=== PATIENT | female | born 1990 | race Caucasian/White ===

== ENCOUNTER 2018-07-03 07:59 | Emergency (ER) | payer MEDICAID ==
[~2018-07-03] VITALS: Ht 160 cm; Wt 108.9 kg
[2018-07-03 08:05] VITALS: BP 129/86
--- NOTE | 2018-07-03 08:20 | NUR ---
PT C/O EPIGASTRIC PAIN THAT STARTED THIS MORNING. PT REPORTS NAUSEA; DENIES VOMITING, DIARRHEA. PAIN DESCRIBED ACHING AND CONSTANT, 7/10. NO OTHER COMPLAINTS; VSS. PATIENT POSITIONED FOR COMFORT; HOB ELEVATED; BEDRAILS UP X1; BED DOWN. ER MD MADE AWARE OF PT STATUS.
[2018-07-03] MEDS ORDERED: DICYCLOMINE HCL LIQUID 20 MG, ALUMINUM HYD/MAG/SIMETHICONE 30 ML, LIDOCAINE VISCOUS 2% ... PO ONE ×3 (08:30)
[2018-07-03] MEDS ORDERED: ONDANSETRON 4 MG ODT PO ONE (08:30)
[2018-07-03 09:32] VITALS: BP 129/86
--- NOTE | 2018-07-03 09:33 | NUR ---
Patient discharged with v/s stable. Written and verbal after care instructions given and explained. Patient alert, oriented and verbalized understanding of instructions. Ambulatory with steady gait. All questions addressed prior to discharge. ID band removed. Patient advised to follow up with PMD. Rx of MOTRIN, NORCO, ZOFRAN, PRILOSEC given. Patient educated on indication of medication including possible reaction and side effects. Opportunity to ask questions provided and answered.
== END 2018-07-03 09:33 | disposition home or self-care (01) ==
LOC: MED 07:59
DX: R10.13 Epigastric pain (principal); R11.0 Nausea; Z90.49 Acquired absence of other specified parts of digestive tract
CPT/HCPCS: 81002; 81025; 99283; Q0162

== ENCOUNTER 2018-07-16 04:59 | Emergency (ER) | payer MEDICAID ==
[~2018-07-16] VITALS: Ht 160 cm; Wt 95.3 kg
[2018-07-16 05:06] VITALS: BP 120/65
--- NOTE | 2018-07-16 05:06 | NUR ---
TO BED # 3 AMBULATORY, REPORT GIVEN TO BLADE WONG
--- NOTE | 2018-07-16 05:10 | NUR ---
ASSUMED CARE OF PT AT THIS TIME. C/O EPIGASTRIC PAIN W/ N/V X 3 HOURS. AAOX4 WITH EVEN AND STEADY GAIT; PATIENT STATES PAIN OF 10/10; VSS; PATIENT POSITIONED FOR COMFORT; HOB ELEVATED; BEDRAILS UP X2; BED DOWN. ER MD MADE AWARE OF PT STATUS. WILL CONTINUE TO MONITOR.
--- NOTE | 2018-07-16 05:10 | NUR ---
Jeremy giraldo in [facility] - 07/16/18 at 0511 by CB PT TAKEN TO BED 9
--- NOTE | 2018-07-16 05:10 | NUR ---
PT TAKEN TO BED 7
[2018-07-16] MEDS ORDERED: DICYCLOMINE HCL LIQUID 20 MG, ALUMINUM HYD/MAG/SIMETHICONE 30 ML, LIDOCAINE VISCOUS 2% ... PO ONE ×3 (05:35)
--- NOTE | 2018-07-16 06:12 | NUR ---
Dr. France evaluating patient at bedside.
[2018-07-16] MEDS ORDERED: ONDANSETRON 4 MG ODT PO ONE (06:20)
[2018-07-16] MEDS ORDERED: MORPHINE SULFATE 4 MG/ML SYR IM ONE (06:20)
[2018-07-16 06:55] VITALS: BP 132/74
--- NOTE | 2018-07-16 06:55 | NUR ---
Patient discharged with v/s stable. Written and verbal after care instructions given and explained. Patient alert, oriented and verbalized understanding of instructions. Ambulatory with steady gait. All questions addressed prior to discharge. ID band removed. Patient advised to follow up with PMD. Rx of [place], Prilosec, and Zofran given. Patient educated on indication of medication including possible reaction and side effects. Opportunity to ask questions provided and answered.
== END 2018-07-16 06:55 | disposition home or self-care (01) ==
LOC: MED 04:59
DX: R10.13 Epigastric pain (principal); R11.2 Nausea with vomiting, unspecified; K21.9 Gastro-esophageal reflux disease without esophagitis; Z90.49 Acquired absence of other specified parts of digestive tract
CPT/HCPCS: 81002; 81025; 96372; 99283; J2270; Q0162

== ENCOUNTER 2018-07-24 06:57 | Emergency (ER) | payer MEDICAID ==
[~2018-07-24] VITALS: Ht 160 cm; Wt 99.8 kg
[2018-07-24 07:19] VITALS: BP 110/78
--- NOTE | 2018-07-24 07:32 | NUR ---
PT AMBULATED TO BED 8.
--- NOTE | 2018-07-24 08:17 | NUR ---
28 YR OLD AAO X4 PT WITH C/O N/V & INTERMITENT EPIGASTRIC PAIN 10/10 RADIATING TO PRATIBHA UPPER CHEST SINCE YESTERDAY. LAST BM : NORMAL X YESTERDAY. HX: HIGH CHOLESTEROL, APPENDECTOMY X 5 YEARS AGO. MED: NONE
--- NOTE | 2018-07-24 08:25 | NUR ---
Dr Painter evaluating aao x4 pt at bedside
[2018-07-24 08:29] LABS: BARBITURATE, URINE NEG. ng/ml (NEG <=200); BENZODIAZEPINE, URINE NEG. ng/mL (NEG <=200); CANNABINOID, URINE NEG. ng/mL (NEG <=50); COCAINE, URINE NEG. ng/mL (NEG <=300); OPIATE, URINE POS. ng/mL (NEG <=2000); PHENCYCLIDINE SCREEN,URINE NEG. ng/mL (NEG <=25)
[2018-07-24] MEDS ORDERED: NACL 0.9% 1,000 ML IV SCH (08:33)
[2018-07-24] MEDS ORDERED: NACL 0.9% 1,000 ML IV ONE (08:33)
[2018-07-24] MEDS ORDERED: KETOROLAC 30 MG/ML VIAL IVP ONE (08:35)
[2018-07-24] MEDS ORDERED: MORPHINE SULFATE 4 MG/ML SYR IVP ONE (08:35)
[2018-07-24] MEDS ORDERED: PROMETHAZINE 25 MG/ML VIAL IM ONE (08:35)
[2018-07-24] MEDS ORDERED: ONDANSETRON 4 MG/2 ML VIAL IVP ONE (08:35)
[2018-07-24 08:40] LABS: BILIRUBIN,URINE NEGATIVE (NEGATIVE); BLOOD, URINE 2+ (NEGATIVE); COLOR,URINE YELLOW (YELLOW); LEUKOCYTE ESTERASE ,URINE NEGATIVE (NEGATIVE); NITRITE, URINE NEGATIVE (NEGATIVE); UGLUCOSE NEGATIVE (NEGATIVE)
[2018-07-24 08:46] LABS: APPEARANCE,URINE SLIGHTLY HAZY (CLEAR); RBC,URINE 3-10 (FEW) /HPF (0-5); WBC,URINE 0-5 (RARE) /HPF (0-5)
--- NOTE | 2018-07-24 08:48 | NUR ---
PT TO RADIOLOGY VIA [facility]
--- NOTE | 2018-07-24 08:49 | NUR ---
PT RETURNED FROM RADIOLOGY
[2018-07-24 09:11] LABS: BASOPHILS # (AUTO) 0.1 K/uL (0.00-0.22); BASOPHILS % (AUTO) 0.5 % (0.0-2.0); EOSINOPHILS # (AUTO) 0.1 K/uL (0-0.4); EOSINOPHILS % (AUTO) 1.2 % (0.0-4.0); HEMATOCRIT 43.9 % (36-48); HEMOGLOBIN 14.4 g/dL (12.0-16.0); LYMPHOCYTES % (AUTO) 15.9 % (20.5-51.1); MEAN CORPUSCULAR HEMOGLOBIN 30 pg (27-31); MEAN CORPUSCULAR HGB CONC 33 g/dL (33-37); MONOCYTES # (AUTO) 0.6 K/uL (0.8-1.0); MONOCYTES % (AUTO) 4.7 % (1.7-9.3); NEUTROPHILS # (AUTO) 9.9 K/uL (1.8-7.7); NEUTROPHILS % (AUTO) 77.7 % (42.2-75.2); PLATELET COUNT (AUTO) 340 K/uL (140-450); RED BLOOD CELL COUNT(AUTO) 4.88 MIL/uL (4.20-5.40); RED CELL DISTRIBUTION WIDTH 13.5 % (11.6-13.7); WHITE BLOOD COUNT (AUTO) 12.7 K/uL (4.8-10.8)
[2018-07-24 09:18] LABS: ANION GAP 9.5 (8-16); CARBON DIOXIDE 30.5 mmol/L (21-32); CREATININE 0.8 mg/dL (0.6-1.3)
[2018-07-24 09:24] LABS: TOTAL BILIRUBIN 0.3 mg/dL (0.0-1.0)
[2018-07-24 09:27] LABS: PROTHROMBIN TIME 9.9 secs (10.8-13.4)
--- NOTE | 2018-07-24 11:12 | NUR ---
PT RESTING COMFORTABLE ON BED 8, ON MONITOR, NO ACUTE DISTRESS NOTED, NO C/O PAIN AT THIS TIME, WILL CONTINUE TO MONITOR
--- NOTE | 2018-07-24 11:14 | NUR ---
SPOKE TO [facility] AT THIS TIME FOR INSURANCE VERIFICATION. 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 WAITING FOR CALL BACK AT THIS TIME
--- NOTE | 2018-07-24 11:40 | NUR ---
SPOKE WITH CHOLO FROM [facility] FOR STATUS OF THE PT, LABS, CT, US RESULTS REPORTED, AND MEDS GIVEN.
--- NOTE | 2018-07-24 11:45 | NUR ---
SPOKE TO PRAVEEN FROM [facility]. PT TO BE TRANFERED, WAITING FOR MED SURG BED ASSIGNMENT AT THIS TIME
--- NOTE | 2018-07-24 11:59 | NUR ---
PER REQUEST, FAXED FACESHEET AND CLINICALS TO [facility] AT THIS TIME. WAITING FOR CALL BACK AT THIS TIME REGARDING TRANFER AND BED ASSIGNMENT
--- NOTE | 2018-07-24 12:08 | NUR ---
TO DR PORTILLO AT THIS TIME. DR CORONEL SPEAKING TO DR SANDOVAL REGARDING ADMISSION
[2018-07-24] MEDS ORDERED: PIPERACILLIN/TAZOBACTAM 3.375 GM in DEXTROSE 5% 50 ML IV ONE (12:15)
[2018-07-24] MEDS ORDERED: metroNIDAZOLE 500 MG/NS PREMIX 100 ML IV ONE (12:15)
[2018-07-24] MEDS ORDERED: METOCLOPRAMIDE 10 MG/2 ML INJ VIAL IVP ONE (12:15)
--- NOTE | 2018-07-24 12:15 | NUR ---
PER TRENA FROM [facility], DR SANDOVAL SPOKE TO DR MARINO, PT TO BE TRANSFERED TO [facility]. AWAITING CALL BACK FOR BED ASSIGNMENT AND TRANSFER DETAILS AT THIS TIME CALL BACK NUMBER FOR TRENA [phone]
--- NOTE | 2018-07-24 12:45 | NUR ---
CALL BACK FROM [facility] TO BED TRANFERED TO [facility] NUMBER [id number]. CALL NUMBER FOR REPORT [phone] EX [phone]. WAITING FOR CALL BACK FOR TRANSPORT ARRANGEMENT AND ETA AT THIS.
[2018-07-24] MEDS ORDERED: PIPERACILLIN/TAZOBACTAM 3.375 GM VIAL IV ONE (13:37)
--- NOTE | 2018-07-24 13:38 | NUR ---
JOS BACK FROM [facility], ETA FOR TRANSPORT VIA [facility] IS [phone]
--- NOTE | 2018-07-24 13:55 | NUR ---
Patient to be transferred to [place]. Is being transferred due to need for higher level of care. Receiving facility has accepting physician and available space. ER physician has signed transfer form. Patient or responsible constitution party has agreed to transfer and signed form. Patient belongings inventoried and will be sent with patient. Copy of nursing notes, lab reports, EKG, Physicians Orders and X-rays to be sent with patient. Report called to JUDITH Miramontes at receiving facility. [facility] ambulance service has been called for transfer. ETA is between 1400 and 1430.
--- NOTE | 2018-07-24 13:58 | NUR ---
TRANSPORT ARRIVED AT THIS TIME
[2018-07-24 14:25] VITALS: BP 100/68
--- NOTE | 2018-07-24 14:25 | NUR ---
LUIS E NOT GIVEN PT TRANSFERRED TO [facility]
--- NOTE | 2018-07-24 14:25 | NUR ---
REPORT GIVEN TO [facility] BREWER TRANSPORTED VIA [place] BY EMR. VSS. REPORT GIVEN TO JUDITH CHILEL AT [facility] AT EARLIER TIME.
== END 2018-07-24 14:25 | disposition short-term general hospital (02) ==
LOC: MED 06:57
DX: K80.20 Calculus of gallbladder without cholecystitis without obstruction (principal); J02.9 Acute pharyngitis, unspecified; K21.9 Gastro-esophageal reflux disease without esophagitis; Z90.89 Acquired absence of other organs; Z79.899 Other long term (current) drug therapy
CPT/HCPCS: 36415; 74176; 76705; 80053; 80305; 81001; 81025; 82150; 82977; 83690; 85025; 85610; 96361; 96365; 96372; 96375; 99285; J1885; J2270; J2405; J2543; J2550; J2765; J7030; J7060; Q0092; J3490

== ENCOUNTER 2019-02-02 00:53 | Emergency (ER) | payer MEDICAID ==
[~2019-02-02] VITALS: Ht 160 cm; Wt 103.0 kg
[2019-02-02 01:04] VITALS: BP 135/91
--- NOTE | 2019-02-02 01:05 | NUR ---
PT PROVIDED URINE SAMPLE AND TO LOBBY EVEN STEADY GAIT.
--- NOTE | 2019-02-02 02:06 | NUR ---
PT AMBULATED TO BED 06.
--- NOTE | 2019-02-02 02:10 | NUR ---
28/ PRESENTED TO ED BIB SELF. C/O UPPER LEFT BACK PAIN RADIATING TO NECK X3 DAYS , STATES NO INJURY OR TRAUMA. 8/10 PAIN NOTED. STATES HAS BEEN TAKING TYLENOL AND APPLIED ICY HOT PACK W MINIMAL RELEIF. NO SOB. NO FEVER. NO N/V/D. NO MED HX. NO RX. DENIES ALLERGIES. WILL CONTINUE TO MONITOR.
[2019-02-02] MEDS ORDERED: KETOROLAC 60 MG/2 ML VIAL IM ONE (02:45)
[2019-02-02 03:40] VITALS: BP 135/91
== END 2019-02-02 03:40 | disposition home or self-care (01) ==
LOC: MED 00:53
DX: M54.6 Pain in thoracic spine (principal); K21.9 Gastro-esophageal reflux disease without esophagitis; Z90.49 Acquired absence of other specified parts of digestive tract
CPT/HCPCS: 81002; 81025; 96372; 99283; J1885

== ENCOUNTER 2024-01-01 19:40 | Emergency (ER) | payer MEDICAID, OTHER ==
[~2024-01-01] VITALS: Ht 160 cm; Wt 99.8 kg
[2024-01-01 19:58] VITALS: BP 130/94; PULSE 94; RESP 20; TEMP 97.7; O2SAT 98
[2024-01-01 20:10] VITALS: BP 130/94; PULSE 94; RESP 20; TEMP 97.7; O2SAT 98
[2024-01-01] MEDS: LIDOCAINE MPF 1% 10 MG/ML VIAL INJ ONE (21:00)
[2024-01-01] MEDS ORDERED: SULF-59 PO (21:30)
[2024-01-01] MEDS ORDERED: CEPH-588 PO (21:30)
== END 2024-01-01 21:40 | disposition home or self-care (01) ==
LOC: MED 19:40
DX: L02.214 Cutaneous abscess of groin (principal); L03.314 Cellulitis of groin; K21.9 Gastro-esophageal reflux disease without esophagitis; Z79.899 Other long term (current) drug therapy
CPT/HCPCS: 10160; 81025; 99284; J2001

== ENCOUNTER 2024-02-28 15:43 | Emergency (ER) | payer OTHER ==
[~2024-02-28] VITALS: Ht 160 cm; Wt 99.8 kg
[~2024-02-28 15:43] MED LIST: CEPH-588 PO
[2024-02-28 15:52] VITALS: BP 135/87; PULSE 90; RESP 22; TEMP 98.4; O2SAT 99
[2024-02-28 16:34] VITALS: O2SAT 99
[2024-02-28 17:00] LABS: BASOPHILS # (AUTO) 0.1 K/uL (0.00-0.22); BASOPHILS % (AUTO) 0.7 % (0.0-2.0); EOSINOPHILS # (AUTO) 0.2 K/uL (0-0.4); EOSINOPHILS % (AUTO) 1.3 % (0.0-4.0); HEMATOCRIT 41.9 % (36-48); LYMPHOCYTES # (AUTO) 2.7 K/uL (2.5-16.5); LYMPHOCYTES % (AUTO) 19.8 % (20.5-51.1); MEAN CORPUSCULAR HEMOGLOBIN 30 pg (27-31); MEAN CORPUSCULAR HGB CONC 34 g/dL (33-37); MEAN CORPUSCULAR VOLUME 89.2 fL (80-94); MONOCYTES # (AUTO) 0.7 K/uL (0.8-1.0); MONOCYTES % (AUTO) 5.4 % (1.7-9.3); NEUTROPHILS # (AUTO) 9.8 K/uL (1.8-7.7); NEUTROPHILS % (AUTO) 72.8 % (42.2-75.2); PLATELET COUNT (AUTO) 302 K/uL (140-450); RED BLOOD CELL COUNT(AUTO) 4.69 MIL/uL (4.20-5.40); RED CELL DISTRIBUTION WIDTH 13.7 % (11.6-13.7); WHITE BLOOD COUNT (AUTO) 13.5 K/uL (4.8-10.8)
[2024-02-28 17:16] LABS: ANION GAP 11.4 (8-16); CALCIUM 9.2 mg/dL (8.5-10.1); CARBON DIOXIDE 29.6 mmol/L (21-32); CREATININE 0.9 mg/dL (0.6-1.3)
[2024-02-28 17:20] LABS: ALBUMIN 3.6 g/dL (3.4-5.0); BILIRUBIN,DIRECT 0.2 mg/dL (0.0-0.3); TOTAL BILIRUBIN 1.1 mg/dL (0.0-1.0); TOTAL PROTEIN, SERUM 7.4 g/dL (6.4-8.2)
[2024-02-28] MEDS ORDERED: ALUMINUM HYD/MAG/SIMETHICONE 30 ML UDC ONE (17:21)
[2024-02-28] MEDS ORDERED: ONDANSETRON 4 MG TAB ONE (17:22)
[2024-02-28] MEDS: ONDANSETRON 4 MG ODT PO ONE (17:23)
[2024-02-28] MEDS: ALUMINUM HYD/MAG/SIMETHICONE 30 ML UDC PO ONE (17:24)
[2024-02-28 18:36] LABS: APPEARANCE,URINE CLEAR (CLEAR); BILIRUBIN,URINE NEGATIVE (NEGATIVE); BLOOD, URINE 2+ (NEGATIVE); COLOR,URINE YELLOW (YELLOW); LEUKOCYTE ESTERASE ,URINE NEGATIVE (NEGATIVE); NITRITE, URINE NEGATIVE (NEGATIVE); PH,URINE 6.5 (5.0-9.0); PROTEIN,URINE NEGATIVE (NEGATIVE); UGLUCOSE NEGATIVE (NEGATIVE); UROBILINOGEN,URINE 0.2 EU/dL (0.2 - 1)
[2024-02-28 19:09] LABS: BACTERIA,URINE 1+ /HPF (None Seen)
[2024-02-28 19:10] LABS: MUCUS,URINE 1+ /LPF (None Seen); SQUAMOUS EPITHELIAL CELL,UR 4-10 (MOD) /LPF (0-3 (FEW))
[2024-02-28] MEDS ORDERED: ONDA-188 SL (19:15)
[2024-02-28] MEDS ORDERED: CEFP200T20 PO (19:15)
== END 2024-02-28 19:19 | disposition home or self-care (01) ==
LOC: MED 15:43
DX: N39.0 Urinary tract infection, site not specified (principal); N83.202 Unspecified ovarian cyst, left side; K21.9 Gastro-esophageal reflux disease without esophagitis; Z79.899 Other long term (current) drug therapy
CPT/HCPCS: 36415; 76856; 80048; 80076; 81001; 81025; 83690; 84702; 85025; 87086; 93976; 99284; Q0092; Q0162